=== PATIENT | male | born 1975 | race Caucasian/White ===

== ENCOUNTER 2018-06-15 20:04 | Emergency (ER) | payer SELFPAY ==
[2018-06-15 21:13] LABS: #Basophils 0.1 thou/uL (0.0-0.2); #Eosinphils 0.1 thou/uL (0.0-0.7); #Lymphocytes 1.9 thou/uL (1.20-3.40); #Neutrophils 6.9 thou/uL (1.40-6.50); %Basophils 0.5 % (0.0-1.0); %Eosinophils 0.6 % (0.0-10.0); %Lymphocytes 19.2 % (21.0-51.0); %Monocytes 9.9 % (0.0-10.0); %Neutrophils 69.7 % (42.0-75.0); Hemoglobin 17.3 g/dL (14.0-18.0); Mean Corpuscular HGB CONC 33.2 g/dL (32.0-36.0); Mean Corpuscular Hemoglobin 32.2 pg (27.0-31.0); Mean Corpuscular Volume 96.9 fL (78.0-98.0); Mean Platelet Volume 7.1 fL (7.4-10.4); Platelet Count 220 thou/uL (130-400); Red Blood Cell (RBC) Count 5.38 mill/uL (4.70-6.10); White Blood Cell (WBC) Count 9.9 thou/uL (4.8-10.8)
[2018-06-15 21:43] LABS: ALT (SGPT) 19 U/L (8-55); AST (SGOT) 20 U/L (5-34); Albumin 4.1 g/dL (3.5-5.0); Alkaline Phosphatase 64 U/L (40-150); Anion Gap 14 mmol/L (10-20); BUN (Urea Nitrogen) 13 mg/dL (8.9-20.6); Bilirubin, Total 0.4 mg/dL (0.2-1.2); Calc. Creatinine Clearance 0 mL/min (70-130); Calcium 9.4 mg/dL (7.8-10.44); Carbon Dioxide 24 mmol/L (22-29); Chloride 103 mmol/L (98-107); Estimated GFR-MDRD 82; Globulin 2.7 g/dL (2.4-3.5); Glucose 93 mg/dL (70-105); Protein, Total 6.8 g/dL (6.0-8.3); Sodium 137 mmol/L (136-145)
[2018-06-15] MEDS ORDERED: Ketorolac Tromethamine 30 MG/ML VIAL ONE (21:48)
[2018-06-15] MEDS ORDERED: Ondansetron PF 4 MG/2 ML Vial ONE (21:48)
[2018-06-15 22:22] LABS: Bilirubin Negative (Negative); Blood, Urine Large (Negative); Clarity CLEAR (Clear); Glucose, Urine (Dipstick) Negative (Negative); Leukocyte Negative (Negative); Nitrite Negative (Negative); Protein, Urine (Dipstick) 100 mg/dL (Neg-Trace); Specific Gravity, Urine 1.019 (1.002-1.036)
--- NOTE | 2018-06-15 22:22 | CT ---
NONCONTRAST ENHANCED CT IMAGES ABDOMEN AND PELVIS: 06/15/18 HISTORY: 42-year-old presents with history of left flank pain. Noncontrast enhanced CT images of the abdomen and pelvis demonstrate the lung bases to be unremarkabl e. No evidence of free intraperitoneal air or fluid seen. The liver, spleen, gallbladder, pancreas, adrenal glands are unremarkable. Small nonobstructing calculi seen in the right kidney. There are numerous mid and lower pole left renal calculi in the lower calyces. There is severe left s ided hydroureteronephrosis. The left ureter is dilated. There is an approximately 8 mm axial dimensio n calculus in the mid left ureter. Superior inferior dimension measures 30 mm filling a fairly long s egment of the left ureter with proximal hydronephrosis and distal additional smaller calculi also pre sent. Urological consultation is recommended. This large group of calculi likely will not pass on its own without urological intervention. No dilated loops of small bowel seen. IMPRESSION: Numerous left renal calculi with left sided hydroureteronephrosis and numerous mid and lower aspect l eft renal calculi. POS: YANELI
[2018-06-15 22:26] LABS: Bacteria/HPF None Seen HPF (None Seen); Pathc Cast-AUWi Flag 1.16 (0-2.49); Squamous Epithelial 0-3 HPF (0-3); WBC/HPF 21-50 HPF (0-3)
[2018-06-15 22:33] LABS: Hyaline Casts/LPF 0-3 HYALINE CAST LPF (0-3 Hyaline)
== END 2018-06-15 23:08 | disposition home or self-care (01) ==
LOC: ERS 20:04
DX: N13.2 Hydronephrosis with renal and ureteral calculous obstruction (principal); Z87.442 Personal history of urinary calculi; Z79.899 Other long term (current) drug therapy
CPT/HCPCS: 74176; 80053; 81003; 81015; 85025; 87086; 96374; 96375; J1885; J2405